=== PATIENT | male | born 1995 | race Caucasian/White ===

== ENCOUNTER 2016-05-25 01:20 | Emergency (ER) | payer OTHER ==
[2016-05-25 01:26] VITALS: BP 142/77; RESP 16; TEMP 98.6
--- NOTE | 2016-05-25 01:57 | EDPHY ---
H & P Stated Complaint: lac on bottom of R 4th toe HPI/ROS: HPI CHIEF COMPLAINT: Laceration to the bottom of right foot HISTORY OF PRESENT ILLNESS: This patient otherwise healthy 20-year-old male, who presents emergency room with a laceration to the plantar aspect of his right foot specifically it is in the crease of his 3rd and 4th toes. States he was in his bedroom he stepped on a piece of glass. No other injuries. Tells me his tetanus shot is up to date. Past Medical History: No medical history Past Surgical History: no surgical history Social History: denies daily use of drugs alcohol tobacco products Family History: noncontributory ROS REVIEW OF SYSTEMS: A comprehensive 10 point review of systems is otherwise negative aside from elements mentioned in the history of present illness. Exam Constitutional triage nursing summary reviewed, vital signs reviewed, awake/ alert. Eyes normal conjunctivae and sclera, EOMI, PERRLA. HENT normal inspection, atraumatic, moist mucus membranes, no epistaxis, neck supple/ no meningismus, no raccoon eyes. Respiratory clear to auscultation bilaterally, normal breath sounds, no respiratory distress, no wheezing. Cardiovascular rate normal, regular rhythm, no murmur, no edema, distal pulses normal. Gastrointestinal soft, non-tender, no rebound, no guarding, normal bowel sounds, no distension, no pulsatile mass. Genitourinary no CVA tenderness. Musculoskeletal right foot: Neurovascular intact good pulse, good cap refill. Normal sensation. Normal function. Good toe crawling. No obvious tendon injury. On the plantar aspect of the right foot the crease of the 3rd and 4th toe there is a 5 cm horizontal laceration present. No tendon injury, arterial injury. no midline vertebral tenderness, full range of motion, no calf swelling , no tenderness of extremities, no meningismus, good pulses, neurovascularly intact. Skin pink, warm, & dry, no rash, skin atraumatic. Neurologic awake, alert and oriented x 3, AAOx3, moves all 4 extremities equally, motor intact, sensory intact, CN II-XII intact, normal cerebellar, normal vision, normal speech. Psychiatric normal mood/affect. Heme/Lymph/Immune no lymphadenopathy. Differential Diagnosis: Includes but is not limited to in a particular order, foot laceration, foot wound, soft tissue injury Medical Decision Making: Plan for this patient he will need his laceration repaired and closed under sterile conditions. He will need his wound cleaned. He will need an x-ray to make sure does not have foreign bodies present. Re-evaluation: Laceration Repair Procedure: Verbal Consent was obtained, Under sterile conditions, The patient had lidocaine with epinephrine used approximately 10ccs to local anesthetize the 5cm horizontal right foot Laceration. The wound was copiously irrigated with sterile fluid, the wound was explored for foreign bodies there were none visualized, the wound was explored with a sterile glove to the base. There are no deep structures involved, including no arterial injury. FIVE 5.0 interrupted Sutures were placed in this patient's Right foot laceration. He had good close approximation of the wound edges. He Tolerated this well. ED x-ray right foot: Three view no foreign bodies visualized. Specifically no bony abnormality or glass present. 0242: Patient tolerated repair very nicely. Source: Patient - Personal History Current Tetanus/Diphtheria Vaccine: Yes Current Tetanus Diphtheria and Acellular Pertussis (TDAP): Yes Tetanus Vaccine Date: 04/2016 - Medical/Surgical History Hx Asthma: No Hx Chronic Respiratory Disease: No Hx Diabetes: No Hx Cardiac Disease: No Hx Renal Disease: No Hx Cirrhosis: No Hx Alcoholism: No Hx HIV/AIDS: No Hx Splenectomy or Spleen Trauma: No Other PMH: denies - Social History Smoking Status: Current some day smoker Constitutional: Initial Vital Signs Temperature (C) 37 C 05/25/16 01:23 Heart Rate 96 05/25/16 01:23 Respiratory Rate 16 05/25/16 01:23 Blood Pressure 142/77 H 05/25/16 01:23 O2 Sat (%) 95 05/25/16 01:23 O2 Delivery Mode Room Air Allergies/Adverse Reactions: No Known Allergies Allergy (Unverified 05/25/16 01:27) Home Medications: Medication Instructions Recorded Cephalexin [Keflex (*)] 500 mg PO Q6H #28 cap 05/25/16 Departure - Departure Disposition: Home, Routine, Self-Care Clinical Impression: Laceration Condition: Good Instructions: Care For Your Stitches (ED), Laceration (ED) Additional Instructions: 1. Keep your wound clean, dry, protected. 2. return emergency room if you have any questions or concerns watch for infection. 3. please have your sutures out in 14 days. Referrals: NONE *PRIMARY CARE P,. [Primary Care Provider] - As per Instructions Prescriptions: Cephalexin [Keflex (*)] 500 mg PO Q6H #28 cap
[2016-05-25 02:51] VITALS: PULSE 70; O2SAT 98
== END 2016-06-08 15:53 | disposition home or self-care (01) ==
PROC: 0HQMXZZ Repair Right Foot Skin, External Approach (ICD-10-PCS; principal; 2016-05-25)
DX: S91.311A Laceration without foreign body, right foot, initial encounter (principal); F17.200 Nicotine dependence, unspecified, uncomplicated; W25.XXXA Contact with sharp glass, initial encounter; Y92.003 Bedroom of unspecified non-institutional (private) residence as the place of occurrence of the external cause